=== PATIENT | male | born 1945 | race Caucasian/White ===

== ENCOUNTER 2021-11-15 20:39 | Inpatient (IN) ==
[2021-11-15 21:23] LABS: Basophils % 0.5 % (0.0-0.8); Eosinophils # 0.2 10*3/uL (0.0-0.87); Eosinophils % 2.8 % (0.00-10.9); Hematocrit 50.7 VOL% (42.0-52.0); Hemoglobin 15.8 GM/DL (14.0-18.0); Immature Granulocytes % 0.8 %; Immature Granulocytes Absolute 0.05 #; Lymphocytes # 0.8 10*3/uL (1.4-4.0); Lymphocytes % 13.8 % (21.2-54.2); Mean Corpuscular HGB Conc 31.2 GM/DL (32-36); Mean Corpuscular Volume 96.4 FL (87-102); Mean Platelet Volume 10.2 FL (9.6-12.0); Monocytes # 0.2 10*3/uL (0.11-0.8); Monocytes % 3.5 % (1.7-12.7); Neutrophils % 78.6 % (38.7-73.9); Platelet Count 132 T/CUMM (130-400); Red Blood Count 5.26 MC/CUMM (3.8-5.5)
[2021-11-15 21:30] LABS: INR 1.3
[2021-11-15 21:42] LABS: Albumin 2.9 G/DL (3.4-5.0); Bilirubin,Total 1.2 MG/DL (0.20-1.00); Calcium 8.8 MG/DL (8.5-10.1); Osmolality,Calculated 295.7 MOS/KG (273-304); Potassium 4.4 MMOL/L (3.5-5.1); Total Protein 5.9 G/DL (6.4-8.2)
[2021-11-15] MEDS ORDERED: MORPHINE 2 MG/1 ML SYRINGE IV STA (23:17)
[2021-11-15] MEDS ORDERED: ONDANSETRON 4 MG/2 ML VIAL IV ONE (23:17)
[2021-11-15] MEDS ORDERED: ALBUTEROL/IPRATROPIUM 3 ML NEB RESP TX STA (23:18)
[2021-11-16] MEDS: MORPHINE 2 MG/1 ML SYRINGE IV PRN (01:21)
[2021-11-16] MEDS: ONDANSETRON 4 MG/2 ML VIAL IV PRN ×3 (01:34→14:57)
[2021-11-16] MEDS ORDERED: SODIUM CHLORIDE 0.9% 500 ML IV ONE ×2 (03:36→09:12)
[2021-11-16 06:25] LABS: Bacteria,Urine Occasional /HPF (Few); Hyaline Casts,Urine 3 /LPF (0-3); Mucus,Urine Occasional /LPF (Occasional); RBC,Urine 1 /HPF (0-4); Squamous Epithelial Cell,Urine Occasional /HPF (0-10)
[2021-11-16 06:26] LABS: Bilirubin,Urine Small mg/dL (Negative); Blood, Urine Negative (Negative); Glucose,Urine (UA) Negative (Negative); Ketones,Urine Negative (Negative); Nitrite,Urine Negative (Negative); Protein,Urine 100 mg/dL (Negative); Urine Appearance Clear (Clear); Urine Color Yellow (Yellow); Urine Specific Gravity > 1.030 (1.001-1.035); Urine Urobilinogen 0.2 eU/dL (<2.0)
[2021-11-16 07:02] LABS: Basophils % 0.1 % (0.0-0.8); Hemoglobin 13.9 GM/DL (14.0-18.0); Immature Granulocytes % 0.3 %; Immature Granulocytes Absolute 0.04 #; Lymphocytes # 0.4 10*3/uL (1.4-4.0); Lymphocytes % 2.8 % (21.2-54.2); Mean Corpuscular HGB Conc 31.6 GM/DL (32-36); Mean Corpuscular Volume 95.9 FL (87-102); Mean Platelet Volume 10.5 FL (9.6-12.0); Monocytes % 7.3 % (1.7-12.7); Neutrophils % 89.5 % (38.7-73.9); Platelet Count 128 T/CUMM (130-400); Red Blood Count 4.59 MC/CUMM (3.8-5.5); Red Cell Distribution Width 15.3 % (9.3-17.3)
[2021-11-16 07:07] LABS: White Blood Count 13.5 T/CUMM (4-12)
[2021-11-16 07:25] LABS: Band Neutrophils 3 % (0-10); Eosinophils 1 % (0-10); Lymphocytes 3 % (20-55); Total Cells Counted 100
[2021-11-16 07:27] LABS: Albumin 2.6 G/DL (3.4-5.0); Bilirubin,Total 0.9 MG/DL (0.20-1.00); Calcium 8.3 MG/DL (8.5-10.1); Osmolality,Calculated 294.8 MOS/KG (273-304); Potassium 4.4 MMOL/L (3.5-5.1); Total Protein 5.4 G/DL (6.4-8.2)
[2021-11-16] MEDS ORDERED: SODIUM CHLORIDE 0.9% 1,000 ML IV SCH (09:00)
[2021-11-16] MEDS: PANTOPRAZOLE 40 MG TABLET PO SCH (11:13)
[2021-11-16 12:10] LABS: CKMB % 13.15 %
[2021-11-16] MEDS ORDERED: SODIUM CHLORIDE 0.9% 1,000 ML IV ONE ×2 (12:32→16:30)
[2021-11-16] MEDS ORDERED: TUBERCULIN SKIN TEST 0.1 ML SYRINGE INTRADERM ONE (13:00)
[2021-11-16] MEDS ORDERED: NOREPINEPHRINE 4 MG/4 ML VIAL IV ONE (14:47)
[2021-11-16] MEDS: NOREPINEPHRINE 8 MG in SODIUM CHLORIDE 0.9% 242 ML IV PRN ×2 (14:52→22:48)
[2021-11-16] MEDS: SODIUM CHLORIDE 0.9% 1,000 ML IV SCH ×2 (14:53→21:38)
[2021-11-16] MEDS ORDERED: AZITHROMYCIN INJ 500 MG in SODIUM CHLORIDE 0.9% 250 ML IV SCH (15:00)
[2021-11-16] MEDS ORDERED: cefTRIAXone 1,000 MG in SODIUM CHLORIDE 0.9% 100 ML IV SCH (15:00)
[2021-11-16] MEDS: methylPREDNISolone SOD SUC 40 MG/1 ML VIAL IV SCH ×2 (15:29→22:54)
[2021-11-16] MEDS: CLINDAMYCIN INJ 600 MG/50 ML PREMIX IV SCH ×2 (15:58→22:53)
[2021-11-16 18:49] LABS: Bacteria,Urine Occasional /HPF (Few); Mucus,Urine Occasional /LPF (Occasional); RBC,Urine 2 /HPF (0-4); Squamous Epithelial Cell,Urine Occasional /HPF (0-10)
[2021-11-16] MEDS: ALBUTEROL/IPRATROPIUM 3 ML NEB RESP TX SCH (18:50)
[2021-11-16 18:51] LABS: Glucose,Urine (UA) Negative (Negative); Ketones,Urine Negative (Negative); Nitrite,Urine Negative (Negative); Protein,Urine 30 mg/dL (Negative); Urine Appearance Clear (Clear); Urine Color Yellow (Yellow); Urine Specific Gravity >= 1.030 (1.001-1.035); Urine pH 5.5 (4.5-8.0)
[2021-11-16 18:52] LABS: Bilirubin,Urine Negative (Negative); Blood, Urine Negative (Negative); Urine Urobilinogen 0.2 eU/dL (<2.0)
[2021-11-16 19:47] LABS: Calcium 8.1 MG/DL (8.5-10.1); Osmolality,Calculated 287.5 MOS/KG (273-304); Potassium 5.9 MMOL/L (3.5-5.1)
[2021-11-16] MEDS ORDERED: INSULIN REGULAR 10 UNIT, CALCIUM GLUCONATE 1,000 MG in DEXTROSE 10% 250 ML IV ONE (20:30)
[2021-11-16] MEDS ORDERED: SODIUM BICARBONATE 50 MEQ/50 ML VIAL IV ONE (20:30)
[2021-11-16] MEDS ORDERED: PROMETHAZINE INJ 25 MG in SODIUM CHLORIDE 0.9% 50 ML IV PRN (20:33)
[2021-11-16] MEDS: SODIUM BICARB INJ 75 MEQ in SODIUM CHLORIDE 0.45% 1,000 ML IV SCH (21:11)
[2021-11-16] MEDS ORDERED: SODIUM ZIRCONIUM CYCLOSILICATE 10 GM PACK PO ONE (23:00)
[2021-11-17] MEDS: ALBUTEROL/IPRATROPIUM 3 ML NEB RESP TX SCH ×4 (00:11→19:15)
[2021-11-17 01:24] LABS: Osmolality,Calculated 289.3 MOS/KG (273-304); Potassium 4.3 MMOL/L (3.5-5.1)
[2021-11-17] MEDS: MORPHINE 2 MG/1 ML SYRINGE IV PRN (02:02)
[2021-11-17 03:53] LABS: Basophils % 0.1 % (0.0-0.8); Hematocrit 41.3 VOL% (42.0-52.0); Hemoglobin 12.9 GM/DL (14.0-18.0); Immature Granulocytes % 0.3 %; Immature Granulocytes Absolute 0.03 #; Lymphocytes # 0.4 10*3/uL (1.4-4.0); Lymphocytes % 3.7 % (21.2-54.2); Mean Corpuscular HGB Conc 31.2 GM/DL (32-36); Mean Corpuscular Volume 97.2 FL (87-102); Mean Platelet Volume 10.7 FL (9.6-12.0); Monocytes # 0.5 10*3/uL (0.11-0.8); Monocytes % 3.9 % (1.7-12.7); Platelet Count 139 T/CUMM (130-400); Red Blood Count 4.25 MC/CUMM (3.8-5.5); Red Cell Distribution Width 15.6 % (9.3-17.3); White Blood Count 11.6 T/CUMM (4-12)
[2021-11-17 04:12] LABS: Lymphocytes 2 % (20-55); Total Cells Counted 100
[2021-11-17 04:13] LABS: Platelet Estimate Adequate
[2021-11-17 04:13] LABS: Albumin 2.5 G/DL (3.4-5.0); Bilirubin,Total 0.6 MG/DL (0.20-1.00); Calcium 7.9 MG/DL (8.5-10.1); Total Protein 5.1 G/DL (6.4-8.2)
[2021-11-17] MEDS: SODIUM BICARB INJ 75 MEQ in SODIUM CHLORIDE 0.45% 1,000 ML IV SCH ×2 (05:21→06:29)
[2021-11-17] MEDS: methylPREDNISolone SOD SUC 40 MG/1 ML VIAL IV SCH ×3 (06:29→23:09)
[2021-11-17] MEDS: SODIUM CHLORIDE 0.9% 1,000 ML IV SCH ×2 (06:37→14:27)
[2021-11-17] MEDS: CLINDAMYCIN INJ 600 MG/50 ML PREMIX IV SCH (06:57)
[2021-11-17] MEDS: PANTOPRAZOLE 40 MG TABLET PO SCH (09:31)
[2021-11-17] MEDS: NOREPINEPHRINE 8 MG in SODIUM CHLORIDE 0.9% 242 ML IV PRN ×2 (09:36→20:35)
[2021-11-17 10:31] LABS: CKMB % 8.29 %
[2021-11-17] MEDS: MEROPENEM 500 MG in SODIUM CHLORIDE 0.9% 100 ML IV SCH ×3 (11:43→21:48)
[2021-11-17] MEDS: ALBUMIN 25% 25 GM/100 ML VIAL IV SCH ×2 (12:14→18:42)
[2021-11-18] MEDS: ALBUTEROL/IPRATROPIUM 3 ML NEB RESP TX SCH ×4 (01:27→19:39)
[2021-11-18] MEDS: ALBUMIN 25% 25 GM/100 ML VIAL IV SCH ×3 (01:36→22:23)
[2021-11-18] MEDS: SODIUM CHLORIDE 0.9% 1,000 ML IV SCH ×2 (03:16→16:00)
[2021-11-18 03:38] LABS: Basophils % 0.1 % (0.0-0.8); Hematocrit 35.9 VOL% (42.0-52.0); Immature Granulocytes % 0.3 %; Immature Granulocytes Absolute 0.03 #; Lymphocytes # 0.3 10*3/uL (1.4-4.0); Lymphocytes % 3.2 % (21.2-54.2); Mean Corpuscular HGB Conc 30.6 GM/DL (32-36); Mean Corpuscular Volume 98.4 FL (87-102); Mean Platelet Volume 11.1 FL (9.6-12.0); Monocytes # 0.5 10*3/uL (0.11-0.8); Monocytes % 5.5 % (1.7-12.7); NRBC # 0.04 10*3/uL; Neutrophils % 90.9 % (38.7-73.9); Platelet Count 91 T/CUMM (130-400); Red Blood Count 3.65 MC/CUMM (3.8-5.5); Red Cell Distribution Width 15.7 % (9.3-17.3); White Blood Count 9.5 T/CUMM (4-12)
[2021-11-18] MEDS: MEROPENEM 500 MG in SODIUM CHLORIDE 0.9% 100 ML IV SCH (03:50)
[2021-11-18 04:00] LABS: Band Neutrophils 5 % (0-10); Lymphocytes 2 % (20-55); Nucleated Red Blood Cells 1 (0-5); Platelet Estimate Decreased; Total Cells Counted 100
[2021-11-18 04:02] LABS: Albumin 3.8 G/DL (3.4-5.0); Bilirubin,Total 1.4 MG/DL (0.20-1.00); Calcium 7.6 MG/DL (8.5-10.1); Osmolality,Calculated 293.3 MOS/KG (273-304); Potassium 4.8 MMOL/L (3.5-5.1); Total Protein 5.8 G/DL (6.4-8.2)
[2021-11-18 04:02] LABS: ABG Base Excess -8.5 MMOL/L (-2.5-2.5); ABG HCO3 17.4 MMOL/L (20-26); ABG Oxygen Saturation 84.6 % (95-100); ABG PCO2 45.2 MM HG (35-48); ABG PH 7.232 (7.35-7.45); ABG PO2 59.4 MM HG (80-95); ABG TCO2 17.4 MMOL/L (23-27); Allen Test Positive; Pt O2 Delivery Device Other
[2021-11-18] MEDS ORDERED: SODIUM BICARBONATE 50 MEQ/50 ML VIAL IV ONE (04:11)
[2021-11-18] MEDS: NOREPINEPHRINE 8 MG in SODIUM CHLORIDE 0.9% 242 ML IV PRN (07:15)
[2021-11-18] MEDS: PANTOPRAZOLE 40 MG TABLET PO SCH (09:36)
[2021-11-18] MEDS: methylPREDNISolone SOD SUC 40 MG/1 ML VIAL IV SCH ×3 (09:37→22:23)
[2021-11-18] MEDS ORDERED: MIDAZOLAM 2 MG/2 ML VIAL ONE (12:59)
[2021-11-18] MEDS ORDERED: SUCCINYLCHOLINE 200 MG/10 ML VIAL ONE (13:00)
[2021-11-18] MEDS ORDERED: ETOMIDATE 20 MG/10 ML VIAL IV ONE ×2 (13:00)
[2021-11-18] MEDS ORDERED: MIDAZOLAM 2 MG/2 ML VIAL IV ONE ×2 (13:00→13:30)
[2021-11-18] MEDS ORDERED: SUCCINYLCHOLINE 200 MG/10 ML VIAL IV ONE (13:00)
[2021-11-18] MEDS ORDERED: SODIUM CHLORIDE 0.9% 1,000 ML IV ONE (14:04)
[2021-11-18] MEDS: MIDAZOLAM 100 MG in SODIUM CHLORIDE 0.9% 80 ML IV PRN (14:25)
[2021-11-18] MEDS: fentaNYL INJ 1,250 MCG in SODIUM CHLORIDE 0.9% 225 ML IV PRN (14:25)
[2021-11-18 15:38] LABS: Arterial Base Excess iSTAT -6 MMOL/L (-2.5-2.5); Arterial Bicarbonate iSTAT 21.8 MMOL/L (20-26); Arterial O2 Saturation iSTAT 100 % (95-100); Arterial PCO2 iSTAT 55 MM HG (35-48); Arterial PO2 iSTAT 265 MM HG (80-95); Arterial Total CO2 iSTAT 23 MMO/L (23-27); Arterial pH iSTAT 7.207 (7.35-7.45)
[2021-11-19] MEDS: ALBUTEROL/IPRATROPIUM 3 ML NEB RESP TX SCH ×4 (00:02→19:11)
[2021-11-19] MEDS: SODIUM CHLORIDE 0.9% 1,000 ML IV SCH ×3 (02:00→16:51)
[2021-11-19] MEDS: NOREPINEPHRINE 8 MG in SODIUM CHLORIDE 0.9% 242 ML IV PRN (02:30)
[2021-11-19 02:47] LABS: ABG Base Excess -7.1 MMOL/L (-2.5-2.5); ABG HCO3 18.6 MMOL/L (20-26); ABG PCO2 44.1 MM HG (35-48); ABG TCO2 18.3 MMOL/L (23-27)
[2021-11-19 03:21] LABS: Hematocrit 30.5 VOL% (42.0-52.0); Hemoglobin 9.5 GM/DL (14.0-18.0); Immature Granulocytes % 0.8 %; Immature Granulocytes Absolute 0.03 #; Lymphocytes # 0.1 10*3/uL (1.4-4.0); Lymphocytes % 1.8 % (21.2-54.2); Mean Corpuscular HGB Conc 31.1 GM/DL (32-36); Mean Corpuscular Volume 97.1 FL (87-102); Mean Platelet Volume 11.9 FL (9.6-12.0); Monocytes # 0.2 10*3/uL (0.11-0.8); Monocytes % 5.7 % (1.7-12.7); NRBC # 0.04 10*3/uL; Neutrophils % 91.7 % (38.7-73.9); Platelet Count 46 T/CUMM (130-400); Red Blood Count 3.14 MC/CUMM (3.8-5.5); Red Cell Distribution Width 15.6 % (9.3-17.3); White Blood Count 3.9 T/CUMM (4-12)
[2021-11-19 03:43] LABS: Albumin 3.6 G/DL (3.4-5.0); Calcium 7.6 MG/DL (8.5-10.1); Osmolality,Calculated 305.6 MOS/KG (273-304); Potassium 3.8 MMOL/L (3.5-5.1); Total Protein 4.9 G/DL (6.4-8.2)
[2021-11-19 03:57] LABS: Band Neutrophils 2 % (0-10); Lymphocytes 3 % (20-55); Nucleated Red Blood Cells 1 (0-5); Platelet Estimate Decreased; Total Cells Counted 100
[2021-11-19] MEDS: MEROPENEM 500 MG in SODIUM CHLORIDE 0.9% 100 ML IV SCH (04:20)
[2021-11-19] MEDS: ALBUMIN 25% 25 GM/100 ML VIAL IV SCH (06:00)
[2021-11-19] MEDS: methylPREDNISolone SOD SUC 40 MG/1 ML VIAL IV SCH ×2 (06:13→16:51)
[2021-11-19] MEDS ORDERED: SODIUM CHLORIDE 0.9% 1,000 ML IV PRN ×3 (07:21→10:37)
[2021-11-19] MEDS ORDERED: ROCURONIUM 50 MG/5 ML VIAL IV ONE ×2 (10:39→14:28)
[2021-11-19] MEDS ORDERED: SEVOFLURANE 1 UNIT/15 MINUTE INH ONE ×3 (10:39→14:22)
[2021-11-19] MEDS ORDERED: HEPARIN/NACL 0.9% 2 UNITS/ML 1,000 UNIT/500 ML BAG IV ONE (10:41)
[2021-11-19] MEDS ORDERED: CALCIUM CHLORIDE 1,000 MG/10 ML VIAL IV ONE (10:41)
[2021-11-19] MEDS ORDERED: SODIUM BICARBONATE 50 MEQ/50 ML VIAL IV ONE ×2 (10:41→14:18)
[2021-11-19] MEDS: PANTOPRAZOLE 40 MG VIAL IV SCH (12:28)
[2021-11-19] MEDS ORDERED: PHENYLEPHRINE 1 MG/10 ML SYRINGE IV ONE (14:17)
[2021-11-19] MEDS ORDERED: ceFAZolin 1,000 MG VIAL ONE (14:22)
[2021-11-19 15:28] VITALS: BP 189/108
[2021-11-19] MEDS: INSULIN REGULAR 100 UNIT/ML SUBCUT SCH (17:15)
[2021-11-19] MEDS: BUDESONIDE 0.5 MG/2 ML NEB RESP TX SCH (19:11)
[2021-11-20] MEDS: ALBUTEROL/IPRATROPIUM 3 ML NEB RESP TX SCH ×4 (00:07→19:00)
[2021-11-20] MEDS: methylPREDNISolone SOD SUC 40 MG/1 ML VIAL IV SCH ×4 (00:10→23:26)
[2021-11-20] MEDS: INSULIN REGULAR 100 UNIT/ML SUBCUT SCH ×5 (00:18→23:18)
[2021-11-20 03:02] LABS: ABG Base Excess -7.6 MMOL/L (-2.5-2.5); ABG HCO3 18.2 MMOL/L (20-26); ABG Oxygen Saturation 93.6 % (95-100); ABG PCO2 53.3 MM HG (35-48); ABG PO2 85.1 MM HG (80-95); ABG TCO2 19.4 MMOL/L (23-27)
[2021-11-20 03:19] LABS: ABG PH 7.201 (7.35-7.45)
[2021-11-20 04:34] LABS: Basophils % 0.2 % (0.0-0.8); Hematocrit 33.1 VOL% (42.0-52.0); Hemoglobin 10.4 GM/DL (14.0-18.0); Immature Granulocytes % 0.5 %; Immature Granulocytes Absolute 0.05 #; Lymphocytes # 0.1 10*3/uL (1.4-4.0); Lymphocytes % 0.7 % (21.2-54.2); Mean Corpuscular HGB Conc 31.4 GM/DL (32-36); Mean Corpuscular Volume 95.9 FL (87-102); Mean Platelet Volume 11.4 FL (9.6-12.0); Monocytes # 0.6 10*3/uL (0.11-0.8); Monocytes % 5.8 % (1.7-12.7); NRBC # 0.09 10*3/uL; Neutrophils % 92.8 % (38.7-73.9); Platelet Count 130 T/CUMM (130-400); Red Blood Count 3.45 MC/CUMM (3.8-5.5); White Blood Count 9.9 T/CUMM (4-12)
[2021-11-20] MEDS: MEROPENEM 500 MG in SODIUM CHLORIDE 0.9% 100 ML IV SCH (04:34)
[2021-11-20] MEDS: SODIUM CHLORIDE 0.9% 1,000 ML IV SCH ×2 (04:40→06:11)
[2021-11-20 04:50] LABS: Osmolality,Calculated 308.4 MOS/KG (273-304); Potassium 3.9 MMOL/L (3.5-5.1)
[2021-11-20 04:53] LABS: Lymphocytes 1 % (20-55)
[2021-11-20 04:54] LABS: Platelet Estimate Adequate; Total Cells Counted 100
[2021-11-20] MEDS: BUDESONIDE 0.5 MG/2 ML NEB RESP TX SCH ×2 (07:45→19:00)
[2021-11-20] MEDS ORDERED: DEXMEDETOMIDINE 200 MCG in SODIUM CHLORIDE 0.9% 48 ML IV PRN (08:00)
[2021-11-20] MEDS ORDERED: POLYETHYLENE GLYCOL POWDER 17 GM PACK PO PRN (08:27)
[2021-11-20] MEDS: DOCUSATE SODIUM 100 MG/10 ML UDCUP PO SCH ×2 (09:24→20:22)
[2021-11-20] MEDS: PANTOPRAZOLE 40 MG VIAL IV SCH (09:25)
[2021-11-20] MEDS ORDERED: DEXTROSE 50% 25 GM/50 ML SYRINGE IV ONE (11:32)
[2021-11-20] MEDS ORDERED: DEXTROSE 10% 250 ML BAG IV PRN (11:35)
[2021-11-20] MEDS: DEXTROSE 5% NACL 0.9% 1,000 ML IV SCH (11:48)
[2021-11-20] MEDS ORDERED: NOREPINEPHRINE 16 MG in SODIUM CHLORIDE 0.9% 234 ML IV PRN (11:56)
[2021-11-20] MEDS: METOCLOPRAMIDE 10 MG/2 ML VIAL IV SCH ×3 (12:29→23:28)
[2021-11-20] MEDS ORDERED: FONDAPARINUX 2.5 MG/0.5 ML SYRINGE SUBCUT SCH (12:30)
[2021-11-20] MEDS ORDERED: DEXTROSE 50% 25 GM/50 ML VIAL IV ONE (12:32)
[2021-11-20] MEDS: FLUCONAZOLE INJ 200 MG/100 ML PREMIX IV SCH (13:15)
[2021-11-20] MEDS: ENOXAPARIN 30 MG/0.3 ML SYRINGE SUBCUT SCH (13:16)
[2021-11-20 13:45] LABS: Arterial Base Excess iSTAT -6 MMOL/L (-2.5-2.5); Arterial Bicarbonate iSTAT 20.8 MMOL/L (20-26); Arterial O2 Saturation iSTAT 90 % (95-100); Arterial PCO2 iSTAT 48 MM HG (35-48); Arterial PO2 iSTAT 69 MM HG (80-95); Arterial Total CO2 iSTAT 22 MMO/L (23-27); Arterial pH iSTAT 7.241 (7.35-7.45)
[2021-11-20] MEDS: MORPHINE 2 MG/1 ML SYRINGE IV PRN (13:59)
[2021-11-20 14:06] LABS: Calcium 7.8 MG/DL (8.5-10.1); Osmolality,Calculated 312.6 MOS/KG (273-304); Potassium 3.7 MMOL/L (3.5-5.1)
[2021-11-20] MEDS ORDERED: MAGNESIUM SULF RIDER 2 GM/50 ML PREMIX IV ONE (14:45)
[2021-11-20] MEDS: NOREPINEPHRINE 16 MG in SODIUM CHLORIDE 0.9% 234 ML IV PRN (15:00)
[2021-11-20] MEDS: LACTULOSE 20 GM/30 ML UDCUP PO SCH ×2 (15:20→20:22)
[2021-11-21] MEDS: ALBUTEROL/IPRATROPIUM 3 ML NEB RESP TX SCH ×4 (00:07→19:31)
[2021-11-21] MEDS: DEXTROSE 5% NACL 0.9% 1,000 ML IV SCH (01:05)
[2021-11-21 03:50] LABS: Arterial Base Excess iSTAT -5 MMOL/L (-2.5-2.5); Arterial Bicarbonate iSTAT 21.4 MMOL/L (20-26); Arterial O2 Saturation iSTAT 95 % (95-100); Arterial PCO2 iSTAT 42 MM HG (35-48); Arterial PO2 iSTAT 81 MM HG (80-95); Arterial Total CO2 iSTAT 23 MMO/L (23-27); Arterial pH iSTAT 7.312 (7.35-7.45)
[2021-11-21 03:52] LABS: Basophils % 0.1 % (0.0-0.8); Hematocrit 29.2 VOL% (42.0-52.0); Hemoglobin 9.3 GM/DL (14.0-18.0); Immature Granulocytes % 0.7 %; Immature Granulocytes Absolute 0.09 #; Lymphocytes # 0.1 10*3/uL (1.4-4.0); Lymphocytes % 0.8 % (21.2-54.2); Mean Corpuscular HGB Conc 31.8 GM/DL (32-36); Mean Corpuscular Volume 94.8 FL (87-102); Mean Platelet Volume 11.2 FL (9.6-12.0); Monocytes # 0.8 10*3/uL (0.11-0.8); Monocytes % 5.6 % (1.7-12.7); NRBC # 0.24 10*3/uL; Neutrophils % 92.8 % (38.7-73.9); Platelet Count 90 T/CUMM (130-400); Red Blood Count 3.08 MC/CUMM (3.8-5.5); Red Cell Distribution Width 16.2 % (9.3-17.3); White Blood Count 13.7 T/CUMM (4-12)
[2021-11-21 04:07] LABS: Calcium 8.1 MG/DL (8.5-10.1); Osmolality,Calculated 316.3 MOS/KG (273-304); Potassium 3.5 MMOL/L (3.5-5.1)
[2021-11-21 04:13] LABS: Lymphocytes 3 % (20-55); Platelet Estimate Decreased; Total Cells Counted 100
[2021-11-21] MEDS: MEROPENEM 500 MG in SODIUM CHLORIDE 0.9% 100 ML IV SCH (04:46)
[2021-11-21] MEDS: methylPREDNISolone SOD SUC 40 MG/1 ML VIAL IV SCH ×2 (06:20→17:05)
[2021-11-21] MEDS: METOCLOPRAMIDE 10 MG/2 ML VIAL IV SCH ×4 (06:22→23:31)
[2021-11-21] MEDS: INSULIN REGULAR 100 UNIT/ML SUBCUT SCH ×4 (06:52→23:36)
[2021-11-21] MEDS: BUDESONIDE 0.5 MG/2 ML NEB RESP TX SCH ×2 (07:05→19:31)
[2021-11-21] MEDS: SODIUM CHLORIDE 0.45% 1,000 ML IV SCH (08:15)
[2021-11-21] MEDS: DOCUSATE SODIUM 100 MG/10 ML UDCUP PO SCH ×2 (09:00→20:06)
[2021-11-21] MEDS ORDERED: ALBUMIN 5% 12.5 GM/250 ML VIAL IV SCH (09:00)
[2021-11-21] MEDS: PANTOPRAZOLE 40 MG VIAL IV SCH (09:01)
[2021-11-21] MEDS: ALBUMIN 25% 12.5 GM/50 ML VIAL IV SCH ×2 (09:12→20:05)
[2021-11-21] MEDS: fentaNYL INJ 1,250 MCG in SODIUM CHLORIDE 0.9% 225 ML IV PRN (11:55)
[2021-11-21] MEDS: ENOXAPARIN 30 MG/0.3 ML SYRINGE SUBCUT SCH (13:25)
[2021-11-21] MEDS: FLUCONAZOLE INJ 200 MG/100 ML PREMIX IV SCH (13:25)
[2021-11-21] MEDS ORDERED: MAGNESIUM HYDROXIDE SUSP 30 ML UDCUP PO ONE (17:10)
[2021-11-21] MEDS: NOREPINEPHRINE 16 MG in SODIUM CHLORIDE 0.9% 234 ML IV PRN (23:05)
[2021-11-22] MEDS: ALBUTEROL/IPRATROPIUM 3 ML NEB RESP TX SCH ×4 (00:01→20:03)
[2021-11-22] MEDS: MORPHINE 2 MG/1 ML SYRINGE IV PRN ×3 (02:48→14:49)
[2021-11-22] MEDS: ONDANSETRON 4 MG/2 ML VIAL IV PRN ×2 (02:50→14:50)
[2021-11-22] MEDS: MEROPENEM 500 MG in SODIUM CHLORIDE 0.9% 100 ML IV SCH (03:44)
[2021-11-22 04:31] LABS: Arterial Base Excess iSTAT -5 MMOL/L (-2.5-2.5); Arterial Bicarbonate iSTAT 21.4 MMOL/L (20-26); Arterial O2 Saturation iSTAT 93 % (95-100); Arterial PCO2 iSTAT 45 MM HG (35-48); Arterial PO2 iSTAT 76 MM HG (80-95); Arterial Total CO2 iSTAT 23 MMO/L (23-27); Arterial pH iSTAT 7.286 (7.35-7.45)
[2021-11-22 05:14] LABS: Basophils % 0.2 % (0.0-0.8); Eosinophils % 0.2 % (0.00-10.9); Hematocrit 28.3 VOL% (42.0-52.0); Hemoglobin 8.9 GM/DL (14.0-18.0); Immature Granulocytes % 4.6 %; Immature Granulocytes Absolute 0.88 #; Lymphocytes # 0.2 10*3/uL (1.4-4.0); Lymphocytes % 0.8 % (21.2-54.2); Mean Corpuscular HGB Conc 31.4 GM/DL (32-36); Mean Platelet Volume 11.4 FL (9.6-12.0); Monocytes # 0.8 10*3/uL (0.11-0.8); NRBC # 0.22 10*3/uL; Neutrophils % 90.2 % (38.7-73.9); Platelet Count 78 T/CUMM (130-400); Red Blood Count 2.98 MC/CUMM (3.8-5.5); Red Cell Distribution Width 16.2 % (9.3-17.3); White Blood Count 19.2 T/CUMM (4-12)
[2021-11-22 05:35] LABS: Calcium 8.2 MG/DL (8.5-10.1); Osmolality,Calculated 310.4 MOS/KG (273-304); Potassium 3.8 MMOL/L (3.5-5.1)
[2021-11-22 05:43] LABS: Lymphocytes 2 % (20-55); Platelet Estimate Decreased
[2021-11-22 05:44] LABS: Total Cells Counted 100
[2021-11-22] MEDS: SODIUM CHLORIDE 0.45% 1,000 ML IV SCH ×2 (05:54→11:18)
[2021-11-22] MEDS: methylPREDNISolone SOD SUC 40 MG/1 ML VIAL IV SCH ×3 (06:02→21:15)
[2021-11-22] MEDS: BUDESONIDE 0.5 MG/2 ML NEB RESP TX SCH ×2 (06:58→20:03)
[2021-11-22] MEDS: INSULIN REGULAR 100 UNIT/ML SUBCUT SCH ×4 (07:25→23:34)
[2021-11-22] MEDS: METOCLOPRAMIDE 10 MG/2 ML VIAL IV SCH ×4 (07:32→23:23)
[2021-11-22] MEDS: ALBUMIN 25% 12.5 GM/50 ML VIAL IV SCH ×2 (09:08→21:12)
[2021-11-22] MEDS ORDERED: POLYETHYLENE GLYCOL POWDER 17 GM PACK PO SCH (09:30)
[2021-11-22] MEDS: DOCUSATE SODIUM 100 MG/10 ML UDCUP PO SCH ×2 (09:35→21:12)
[2021-11-22] MEDS: FAMOTIDINE 20 MG/2 ML VIAL IV SCH ×2 (09:38→21:13)
[2021-11-22] MEDS ORDERED: cefTRIAXone 1,000 MG in SODIUM CHLORIDE 0.9% 100 ML IV SCH (10:00)
[2021-11-22] MEDS ORDERED: AZITHROMYCIN INJ 500 MG in SODIUM CHLORIDE 0.9% 250 ML IV SCH (10:00)
[2021-11-22] MEDS: MIDAZOLAM 100 MG in SODIUM CHLORIDE 0.9% 80 ML IV PRN (10:03)
[2021-11-22] MEDS ORDERED: PHENYLEPHRINE DRIP 40 MG/250 ML PREMIX IV ONE ×2 (10:26→10:50)
[2021-11-22] MEDS ORDERED: PHENYLEPHRINE DRIP 40 MG/250 ML PREMIX IV PRN (10:29)
[2021-11-22] MEDS ORDERED: SODIUM CHLORIDE 0.45% 1,000 ML IV ONE (10:33)
[2021-11-22] MEDS ORDERED: NOREPINEPHRINE 4 MG/4 ML VIAL IV ONE (10:51)
[2021-11-22] MEDS ORDERED: SODIUM BICARBONATE 50 MEQ/50 ML VIAL IV ONE ×4 (10:54→14:32)
[2021-11-22] MEDS: SODIUM BICARB INJ 100 MEQ in DEXTROSE 5% 1,000 ML IV SCH (11:55)
[2021-11-22] MEDS: PHENYLEPHRINE INJ 160 MG in SODIUM CHLORIDE 0.9% 234 ML IV PRN ×2 (12:43→20:04)
[2021-11-22] MEDS: FLUCONAZOLE INJ 200 MG/100 ML PREMIX IV SCH (13:16)
[2021-11-22] MEDS ORDERED: SODIUM CHLORIDE 0.45% 500 ML IV ONE (13:56)
[2021-11-22 14:13] LABS: Arterial Base Excess iSTAT -5 MMOL/L (-2.5-2.5); Arterial Bicarbonate iSTAT 23.3 MMOL/L (20-26); Arterial O2 Saturation iSTAT 26 % (95-100); Arterial PCO2 iSTAT 61 MM HG (35-48); Arterial PO2 iSTAT 22 MM HG (80-95); Arterial Total CO2 iSTAT 25 MMO/L (23-27); Arterial pH iSTAT 7.189 (7.35-7.45)
[2021-11-23] MEDS: SODIUM BICARB INJ 100 MEQ in DEXTROSE 5% 1,000 ML IV SCH (00:16)
[2021-11-23] MEDS: ALBUTEROL/IPRATROPIUM 3 ML NEB RESP TX SCH (00:43)
[2021-11-23] MEDS: PHENYLEPHRINE INJ 160 MG in SODIUM CHLORIDE 0.9% 234 ML IV PRN (03:26)
[2021-11-23 04:11] LABS: Arterial Base Excess iSTAT -4 MMOL/L (-2.5-2.5); Arterial Bicarbonate iSTAT 21.9 MMOL/L (20-26); Arterial O2 Saturation iSTAT 99 % (95-100); Arterial PCO2 iSTAT 45 MM HG (35-48); Arterial PO2 iSTAT 131 MM HG (80-95); Arterial Total CO2 iSTAT 23 MMO/L (23-27); Arterial pH iSTAT 7.297 (7.35-7.45)
[2021-11-23 04:50] LABS: Basophils # 0.1 10*3/uL (0.0-0.2); Basophils % 0.4 % (0.0-0.8); Eosinophils % 0.2 % (0.00-10.9); Hematocrit 29.4 VOL% (42.0-52.0); Hemoglobin 9.2 GM/DL (14.0-18.0); Immature Granulocytes % 7.3 %; Immature Granulocytes Absolute 1.43 #; Lymphocytes # 0.1 10*3/uL (1.4-4.0); Lymphocytes % 0.7 % (21.2-54.2); Mean Corpuscular HGB Conc 31.3 GM/DL (32-36); Mean Corpuscular Volume 96.7 FL (87-102); Mean Platelet Volume 12.4 FL (9.6-12.0); Monocytes # 1.2 10*3/uL (0.11-0.8); Monocytes % 6.3 % (1.7-12.7); NRBC # 1.14 10*3/uL; Neutrophils % 85.1 % (38.7-73.9); Platelet Count 69 T/CUMM (130-400); Red Blood Count 3.04 MC/CUMM (3.8-5.5); Red Cell Distribution Width 16.3 % (9.3-17.3); White Blood Count 19.6 T/CUMM (4-12)
[2021-11-23 05:11] LABS: Band Neutrophils 1 % (0-10); Lymphocytes 2 % (20-55); Nucleated Red Blood Cells 2 (0-5); Platelet Estimate Decreased; Total Cells Counted 100
[2021-11-23 05:12] LABS: Calcium 8.4 MG/DL (8.5-10.1); Osmolality,Calculated 310.7 MOS/KG (273-304); Potassium 3.8 MMOL/L (3.5-5.1)
[2021-11-23] MEDS ORDERED: METOCLOPRAMIDE 10 MG/2 ML VIAL IV SCH (06:00)
[2021-11-23] MEDS ORDERED: SODIUM BICARBONATE 50 MEQ/50 ML VIAL IV ONE ×2 (06:30)
[2021-11-23] MEDS: INSULIN REGULAR 100 UNIT/ML SUBCUT SCH (06:43)
[2021-11-23 08:26] LABS: Hepatitis B Core IgM Quant 0.06 Index; Hepatitis B Surface Ag Quant 0.14 Index; Hepatitis B Surface Ag Result Non-Reactive (NonReactive); Hepatitis C Virus Ab Quant 0.03 Index; Hepatitis C Virus Ab Result Non-Reactive (NonReactive)
[2021-11-23] MEDS ORDERED: FAMOTIDINE 20 MG/2 ML VIAL IV SCH (09:00)
== END 2021-11-23 08:49 | disposition expired | DRG 480 ==
LOC: EDUNIT# → EDBD → N.ED 20:39 → N.3E 23:15 → SUATTDRO 23:15 → N.3E 11-16 00:37 → N.ICU 11-16 15:03
PROVIDERS: ADMIT Internal Medicine; ATTEND Internal Medicine